=== PATIENT | female | born 1935 | race Caucasian/White ===

== ENCOUNTER → 2019-01-04 | Outpatient (CLI) | payer MEDICARE, BC ==
[~2019-01-04] MED LIST: ASPIRIN 81M81 MG/TA2 PO; CENTRUM SILVER1 CTB PO; GENTEAL MILD 1515 M1 OP; HALCION0.25 MG; HCTZ 25MG TAB25 MG PO; INDERAL 20MG20 MG PO; LEVOXYL0.1 MG PO; LEXAPRO 10MG10 MG PO; NORVASC 5MG5 MG/TAB PO; OCUVITE ADULT1 SGL PO; XANAX .25M0.25 MG/TA PO; ZOCOR 20MG20 MG PO
== END ==
LOC: MC.RAD 11-26 13:15
DX: Z12.31 Encounter for screening mammogram for malignant neoplasm of breast (principal)

== ENCOUNTER → 2019-03-11 | Outpatient (CLI) | payer MEDICARE, BC | LOC: COL.RAD 09:25 | DX: D47.2 Monoclonal gammopathy (principal) ==

== ENCOUNTER → 2021-03-28 | Outpatient (CLI) | payer MEDICARE, BC | LOC: COL.RAD 08:44 | DX: D47.2 Monoclonal gammopathy (principal) ==